=== PATIENT | female | born 1945 | race Caucasian/White ===

== ENCOUNTER 2019-09-01 17:28 | Inpatient (IN) | payer MEDICARE, MEDICAID ==
[~2019-09-01] VITALS: Ht 162.6 cm; Wt 95.5 kg
[~2019-09-01 17:28] MED LIST: HYDR25CA PO; ONDA4TAB12 PO
[2019-09-01 19:23] LABS: BASOPHILS % (AUTO) 0.2 % (0-1); EOSINOPHILS % (AUTO) 0.4 % (0-6); HEMATOCRIT 36.5 % (35.0-45.0); HEMOGLOBIN 12.3 g/dl (12.0-16.0); LYMPHOCYTES # (AUTO) 0.7 X10'3 (1.1-4.8); LYMPHOCYTES % (AUTO) 7.8 % (21-51); MEAN CORPUSCULAR HEMOGLOBIN 27.9 PG (27.0-31.0); MEAN CORPUSCULAR HGB CONC 33.8 g/dL (33.0-36.5); MEAN CORPUSCULAR VOLUME 82.5 FL (78-98); MEAN PLATELET VOLUME 9.5 FL (7.4-10.4); MONOCYTES # (AUTO) 0.6 X10'3 (0-0.9); MONOCYTES % (AUTO) 6.7 % (2-12); NEUTROPHILS # (AUTO) 7.5 X10'3 (1.8-7.7); NEUTROPHILS % (AUTO) 84.9 % (42-75); PLATELET COUNT 115 X10'3 (140-440); RED BLOOD COUNT 4.42 X10'6 (4.20-5.60); RED CELL DISTRIBUTION WIDTH 13.4 % (11.5-14.5); WHITE BLOOD COUNT 8.8 X10'3 (4.5-11.0)
[2019-09-01 19:24] LABS: ALANINE AMINOTRANSFERASE 20 U/L (12-78); ALBUMIN 3.7 G/DL (3.4-5.0); ALBUMIN/GLOBULIN RATIO 0.9 (1.1-1.5); ALKALINE PHOSPHATASE 104 IU/L (46-116); ANION GAP 9 (8-16); ASPARTATE AMINO TRANSFERASE 20 U/L (10-37); BILIRUBIN,TOTAL 0.9 MG/DL (0.1-1.0); BLOOD UREA NITROGEN 41 MG/DL (7-18); BUN/CREATININE RATIO 32.3 (6.6-38.0); CALCIUM 9.2 MG/DL (8.5-10.1); CHLORIDE 101 MMOL/L (99-107); CREATININE 1.27 MG/DL (0.40-0.90); GLUCOSE 110 MG/DL (70-104); POTASSIUM 3.9 MMOL/L (3.5-5.1); SODIUM 137 MMOL/L (135-145); TOTAL CARBON DIOXIDE 26.9 MMOL/L (24-32); TOTAL PROTEIN 7.9 G/DL (6.4-8.2); eGFR 41 ML/MIN
[2019-09-01 19:38] LABS: CLARITY,URINE CLOUDY (Clear); COLOR,URINE YELLOW (Yellow); GLUCOSE, URINE NEGATIVE (Neg); KETONES,URINE NEGATIVE (Neg); LEUKOCYTE ESTERASE ,URINE LARGE (Neg); NITRITES, URINE NEGATIVE (Neg); OCCULT BLOOD,URINE MODERATE (Neg); PROTEIN,URINE TRACE mg/dl (Neg); UROBILINOGEN,URINE 0.2 E.U/dL (0.2-1.0)
[2019-09-01] MEDS ORDERED: normal saline 1000ml 1,000 ML IV ONE ×2 (19:40→19:55)
[2019-09-01] MEDS ORDERED: piperacillin/tazo 3.375gm/50ml 50 ML IV ONE (19:40)
[2019-09-01] MEDS ORDERED: vancomycin/NS 1 GM ADD-VANTAGE 250 ML IV ONE (19:40)
[2019-09-01 19:46] LABS: UA COLLECTION TYPE CLN CATCH MIDSTREAM
[2019-09-01 19:47] LABS: WBC,URINE 50-100 /HPF (0-4)
[2019-09-01 19:48] LABS: BACTERIA,URINE 2+ /HPF (Neg); SQUAMOUS EPITHELIAL CELL,UR FEW /LPF (FEW)
[2019-09-01 19:49] LABS: TRANSITIONAL EPI CELLS,URINE FEW /HPF
[2019-09-01] MEDS ORDERED: TEMA30CA PO (19:52)
[2019-09-01] MEDS ORDERED: LISI40TA4 PO (19:52)
[2019-09-01] MEDS ORDERED: MORP60TA77 PO (19:52)
[2019-09-01] MEDS ORDERED: SIMV-45 PO (19:52)
[2019-09-01] MEDS ORDERED: HYDR12.55 PO (19:52)
[2019-09-01] MEDS ORDERED: ZOLP10TA5 PO (19:52)
[2019-09-01] MEDS ORDERED: magnesium Cl slow-release 64mg tablet PO PRN (19:55)
[2019-09-01] MEDS ORDERED: HYDROcodone/acetaminophen 5mg/325mg tablet PO PRN (19:55)
[2019-09-01] MEDS ORDERED: magnesium 2GM in 50ml NS 50 ML IV PRN (19:55)
[2019-09-01] MEDS ORDERED: morphine 2 MG/ML inj. syringe IV PRN ×2 (19:55)
[2019-09-01] MEDS ORDERED: acetaminophen 325mg tablet PO PRN (19:55)
[2019-09-01] MEDS ORDERED: magnesium 4gm in 100ml NS 100 ML IV PRN (19:55)
[2019-09-01] MEDS ORDERED: potassium Cl 20 mEq SR tablet PO PRN (19:55)
[2019-09-01] MEDS ORDERED: potassium CL 10mEq/100ml bag 100 ML IV PRN ×2 (19:55)
[2019-09-01] MEDS ORDERED: magnesium hydroxide 30ml (MOM) UD suspension PO PRN (19:55)
[2019-09-01] MEDS ORDERED: ondansetron/PF 4mg/2ml inj IV PRN (19:55)
[2019-09-01] MEDS ORDERED: mag hydrox/Alum hydrox/simeth 30ml oral suspension PO PRN (19:55)
[2019-09-01] MEDS: K and/or MAG REPLACEMENT MC SCH (20:00)
[2019-09-01] MEDS ORDERED: zolpidem 5mg tablet PO PRN (22:00)
[2019-09-01] MEDS ORDERED: temazepam 15mg capsule PO PRN ×2 (22:00→22:20)
--- NOTE | 2019-09-01 23:30 | NUR ---
PT AMB WITH STEADY GAIT TO RESTROOM, USES HER WHEELCHAIR A WALKER, PT C/O OF PAIN TO IV ON LEFT WRIST, STARTED ANOTHER IV ON RT HAND ON 1ST ATTEMPT
--- NOTE | 2019-09-02 00:12 | NUR ---
Patient in room ED 13 to be transferred to room 4011A. I have received report from JAKUB Friedman and had the opportunity to ask questions and assume patient care.
[2019-09-02 00:30] VITALS: BP 131/70
[2019-09-02 06:00] VITALS: BP 121/58
[2019-09-02 06:15] LABS: BASOPHILS % (AUTO) 0.2 % (0-1); EOSINOPHILS # (AUTO) 0.2 X10'3 (0-0.9); EOSINOPHILS % (AUTO) 2.8 % (0-6); HEMATOCRIT 31.5 % (35.0-45.0); HEMOGLOBIN 10.7 g/dl (12.0-16.0); LYMPHOCYTES # (AUTO) 1.2 X10'3 (1.1-4.8); LYMPHOCYTES % (AUTO) 18.6 % (21-51); MEAN CORPUSCULAR HEMOGLOBIN 28.1 PG (27.0-31.0); MEAN CORPUSCULAR VOLUME 82.6 FL (78-98); MEAN PLATELET VOLUME 9.3 FL (7.4-10.4); MONOCYTES # (AUTO) 0.7 X10'3 (0-0.9); MONOCYTES % (AUTO) 10.5 % (2-12); NEUTROPHILS # (AUTO) 4.5 X10'3 (1.8-7.7); NEUTROPHILS % (AUTO) 67.9 % (42-75); PLATELET COUNT 91 X10'3 (140-440); RED BLOOD COUNT 3.81 X10'6 (4.20-5.60); RED CELL DISTRIBUTION WIDTH 13.5 % (11.5-14.5); WHITE BLOOD COUNT 6.5 X10'3 (4.5-11.0)
[2019-09-02 06:31] LABS: ALBUMIN 2.8 G/DL (3.4-5.0); ANION GAP 8 (8-16); BLOOD UREA NITROGEN 37 MG/DL (7-18); BUN/CREATININE RATIO 34.3 (6.6-38.0); CALCIUM 8.5 MG/DL (8.5-10.1); CHLORIDE 106 MMOL/L (99-107); CREATININE 1.08 MG/DL (0.40-0.90); GLUCOSE 104 MG/DL (70-104); MAGNESIUM 1.6 MG/DL (1.5-2.4); SODIUM 139 MMOL/L (135-145); TOTAL CARBON DIOXIDE 24.7 MMOL/L (24-32); eGFR 50 ML/MIN
[2019-09-02 06:33] LABS: POTASSIUM 3.6 MMOL/L (3.5-5.1)
--- NOTE | 2019-09-02 06:35 | NUR ---
PAGER ID: [phone] MESSAGE: Patient Ingris Sandoval in room 1989J is in need of a diet order. Manav/Gracie Vickers [id number] Addendum: 09/02/19 at 0638 by Amy Bueno RN [facility] diet ordered per .
--- NOTE | 2019-09-02 06:35 | NUR ---
Problems reprioritized. Patient report given, questions answered & plan of care reviewed with JAKUB Lopez.
--- NOTE | 2019-09-02 06:42 | NUR ---
Patient in room ORTHO 4011. I have received report from JAKUB Vickers and had the opportunity to ask questions and assume patient care.
[2019-09-02] MEDS: K and/or MAG REPLACEMENT MC SCH ×2 (08:00→20:00)
[2019-09-02] MEDS: CefTRIAXone 2gm/D5W 50ml 50 ML IV SCH (08:19)
[2019-09-02] MEDS: enoxaparin 40mg/0.4ml syringe SQ SCH (08:20)
[2019-09-02] MEDS: lisinopril 20mg tablet PO SCH (08:20)
[2019-09-02] MEDS: morphine ER 30mg tablet PO SCH ×3 (08:20→21:01)
[2019-09-02] MEDS: HYDROchlorothiazide 12.5mg capsule PO SCH ×2 (08:21→08:30)
[2019-09-02] MEDS: lactobacillus rhamnosus 10,000 MMU CELLS/CAPSULE PO SCH ×2 (08:31→21:01)
[2019-09-02] MEDS: atorvastatin 20mg tablet PO SCH (08:31)
[2019-09-02 10:00] VITALS: BP 124/62
--- NOTE | 2019-09-02 13:17 | NUR ---
Spoke with pt Daughter Celsa who lives in [place] and is POA. She states that her mother has no vehicle, and no help at home. She has a poor diet of mostly carbs and sugar/ cookies, cakes etc. She is concerned and would like a Services consult.
[2019-09-02 18:00] VITALS: BP 103/50
[2019-09-02] MEDS: VANCOmycin 1250MG/NS 250ml Bag 250 ML IV SCH (18:13)
--- NOTE | 2019-09-02 18:29 | NUR ---
MS Rachel was pulled for am med pass, nurse scanned meds ands then pt refused to wake up to take. Nurse placed all pm meds in pt med specific. Pt did not wake up until ~1200 and next scheduled dose was due. RN returned am dose to KAREN
--- NOTE | 2019-09-02 18:33 | NUR ---
Problems reprioritized. Patient report given, questions answered & plan of care reviewed with JAKUB Waters.
--- NOTE | 2019-09-02 18:41 | NUR ---
Patient in room ORTHO 4011. I have received report from Jessica CALL and had the opportunity to ask questions and assume patient care. Patient is having dinner and shows no sign of distress.
[2019-09-02 21:00] VITALS: BP 128/55
[2019-09-02] MEDS: furosemide 20 MG/2 ML vial IV SCH (22:17)
[2019-09-03 06:06] VITALS: BP 148/76
--- NOTE | 2019-09-03 06:30 | NUR ---
Patient in room ORTHO 4011. I have received report from Evelin CALL and had the opportunity to ask questions and assume patient care.
--- NOTE | 2019-09-03 06:31 | NUR ---
Problems reprioritized. Patient report given, questions answered & plan of care reviewed with Alee CALL.
[2019-09-03 06:33] LABS: BASOPHILS % (AUTO) 0.2 % (0-1); EOSINOPHILS # (AUTO) 0.2 X10'3 (0-0.9); EOSINOPHILS % (AUTO) 3.6 % (0-6); HEMATOCRIT 34.2 % (35.0-45.0); HEMOGLOBIN 11.4 g/dl (12.0-16.0); LYMPHOCYTES # (AUTO) 1.4 X10'3 (1.1-4.8); LYMPHOCYTES % (AUTO) 22.7 % (21-51); MEAN CORPUSCULAR HEMOGLOBIN 27.7 PG (27.0-31.0); MEAN CORPUSCULAR HGB CONC 33.3 g/dL (33.0-36.5); MEAN CORPUSCULAR VOLUME 83.2 FL (78-98); MEAN PLATELET VOLUME 9.6 FL (7.4-10.4); MONOCYTES # (AUTO) 0.7 X10'3 (0-0.9); MONOCYTES % (AUTO) 11.6 % (2-12); NEUTROPHILS # (AUTO) 3.8 X10'3 (1.8-7.7); NEUTROPHILS % (AUTO) 61.9 % (42-75); PLATELET COUNT 128 X10'3 (140-440); RED BLOOD COUNT 4.11 X10'6 (4.20-5.60); RED CELL DISTRIBUTION WIDTH 13.7 % (11.5-14.5); WHITE BLOOD COUNT 6.2 X10'3 (4.5-11.0)
[2019-09-03 06:56] LABS: ALBUMIN 3.4 G/DL (3.4-5.0); ANION GAP 12 (8-16); BLOOD UREA NITROGEN 27 MG/DL (7-18); BUN/CREATININE RATIO 23.9 (6.6-38.0); CALCIUM 9.1 MG/DL (8.5-10.1); CHLORIDE 102 MMOL/L (99-107); CREATININE 1.13 MG/DL (0.40-0.90); GLUCOSE 96 MG/DL (70-104); MAGNESIUM 1.5 MG/DL (1.5-2.4); POTASSIUM 3.3 MMOL/L (3.5-5.1); SODIUM 140 MMOL/L (135-145); TOTAL CARBON DIOXIDE 26.1 MMOL/L (24-32); eGFR 47 ML/MIN
[2019-09-03] MEDS: potassium Cl 20 mEq SR tablet PO PRN ×2 (07:44→12:30)
[2019-09-03] MEDS: lactobacillus rhamnosus 10,000 MMU CELLS/CAPSULE PO SCH ×2 (07:44→20:09)
[2019-09-03] MEDS: morphine ER 30mg tablet PO SCH ×3 (07:44→20:08)
[2019-09-03] MEDS: lisinopril 20mg tablet PO SCH ×2 (07:44→08:00)
[2019-09-03] MEDS: atorvastatin 20mg tablet PO SCH (07:44)
[2019-09-03] MEDS: enoxaparin 40mg/0.4ml syringe SQ SCH ×3 (07:45→10:58)
[2019-09-03] MEDS: CefTRIAXone 2gm/D5W 50ml 50 ML IV SCH (07:45)
[2019-09-03] MEDS: K and/or MAG REPLACEMENT MC SCH ×2 (08:00→20:00)
--- NOTE | 2019-09-03 10:05 | NUR ---
I paged Dr. Chappell in regards to patient refusing meds again, and echo, and vitals. Patient stated that she needs to call her nurse practitioner friend to ask her about her treatment she is receiving here.
[2019-09-03] MEDS: furosemide 20 MG/2 ML vial IV SCH ×2 (10:57→20:14)
--- NOTE | 2019-09-03 11:56 | NUR ---
PATIENT REFUSED 1000 VITALS. PATIENT SUPPOSED RN FRIEND CALLING IN REGARDS TO PATIENT HEALTH CARE I TOLD HER I COULDN'T GIVE HER INFORMATION DO TO HIPPA VIOLATIONS. SHE STATED THE PATIENT SHOULDN'T HAVE BLOOD THINNERS BECAUSE OF HER HISTORY. I LISTENED TO THE FRIEND COMPLAIN ABOUT THE [facility]UR[facility] AND HER POOR NURSING CARE.
[2019-09-03] MEDS: VANCOmycin 1250MG/NS 250ml Bag 250 ML IV SCH (17:36)
--- NOTE | 2019-09-03 18:34 | NUR ---
Problems reprioritized. Patient report given, questions answered & plan of care reviewed with Diony CALL.
[2019-09-03] MEDS: zolpidem 5mg tablet PO PRN ×2 (20:09→22:26)
[2019-09-04 06:00] VITALS: BP 110/59
[2019-09-04 06:23] LABS: BASOPHILS % (AUTO) 0.3 % (0-1); EOSINOPHILS # (AUTO) 0.2 X10'3 (0-0.9); EOSINOPHILS % (AUTO) 4.5 % (0-6); HEMATOCRIT 31.2 % (35.0-45.0); HEMOGLOBIN 10.6 g/dl (12.0-16.0); LYMPHOCYTES # (AUTO) 1.3 X10'3 (1.1-4.8); LYMPHOCYTES % (AUTO) 27.2 % (21-51); MEAN CORPUSCULAR HEMOGLOBIN 27.8 PG (27.0-31.0); MEAN CORPUSCULAR HGB CONC 34.1 g/dL (33.0-36.5); MEAN CORPUSCULAR VOLUME 81.4 FL (78-98); MEAN PLATELET VOLUME 9.9 FL (7.4-10.4); MONOCYTES # (AUTO) 0.6 X10'3 (0-0.9); MONOCYTES % (AUTO) 13.2 % (2-12); NEUTROPHILS # (AUTO) 2.7 X10'3 (1.8-7.7); NEUTROPHILS % (AUTO) 54.8 % (42-75); PLATELET COUNT 127 X10'3 (140-440); RED BLOOD COUNT 3.83 X10'6 (4.20-5.60); RED CELL DISTRIBUTION WIDTH 13.4 % (11.5-14.5); WHITE BLOOD COUNT 4.9 X10'3 (4.5-11.0)
--- NOTE | 2019-09-04 06:33 | NUR ---
Patient in room ORTHO 4011. I have received report from JAKUB Vora and had the opportunity to ask questions and assume patient care.
[2019-09-04 07:21] LABS: ALBUMIN 2.8 G/DL (3.4-5.0); ANION GAP 9 (8-16); BLOOD UREA NITROGEN 25 MG/DL (7-18); BUN/CREATININE RATIO 23.6 (6.6-38.0); CALCIUM 8.8 MG/DL (8.5-10.1); CHLORIDE 105 MMOL/L (99-107); CREATININE 1.06 MG/DL (0.40-0.90); GLUCOSE 98 MG/DL (70-104); MAGNESIUM 1.6 MG/DL (1.5-2.4); POTASSIUM 3.3 MMOL/L (3.5-5.1); SODIUM 142 MMOL/L (135-145); TOTAL CARBON DIOXIDE 28.3 MMOL/L (24-32); eGFR 51 ML/MIN
[2019-09-04] MEDS: K and/or MAG REPLACEMENT MC SCH (07:27)
[2019-09-04] MEDS: potassium Cl 20 mEq SR tablet PO PRN (07:29)
[2019-09-04] MEDS: lactobacillus rhamnosus 10,000 MMU CELLS/CAPSULE PO SCH (07:29)
[2019-09-04] MEDS: atorvastatin 20mg tablet PO SCH (07:29)
[2019-09-04] MEDS: CefTRIAXone 2gm/D5W 50ml 50 ML IV SCH (07:30)
[2019-09-04] MEDS: morphine ER 30mg tablet PO SCH (07:30)
[2019-09-04] MEDS: furosemide 20 MG/2 ML vial IV SCH (07:30)
[2019-09-04] MEDS: lisinopril 20mg tablet PO SCH (07:30)
[2019-09-04] MEDS: enoxaparin 40mg/0.4ml syringe SQ SCH (07:32)
[2019-09-04 10:00] VITALS: BP 94/45
[2019-09-04] MEDS ORDERED: FURO-150 PO (11:14)
--- NOTE | 2019-09-04 13:43 | NUR ---
Discharged. PIV taken out. Vitals stable. Educated on meds and discharge/follow-up instructions. Meds called into [facility] on [address]. Stable per Dr Lord for DC. Picked up by friend. Patient took belongings and walked out. Medicare DC signed and ID band cut off.
[2019-09-05] MEDS ORDERED: VANCOMYCIN LEVEL IV ONE (17:30)
--- NOTE | 2019-09-08 08:29 | NUR ---
Case management DC follow up: LM/VM asking pt to rtn call for questions/concerns, status post DC
== END 2019-09-04 13:20 | disposition home or self-care (01) | DRG 602 ==
LOC: ER 17:29 → ED HOLD 19:52 → EDBEDREQ 23:52 → ORTHO 4S 09-02 00:15
PROVIDERS: ADMIT Hospitalist; ATTEND Family Medicine
DX: L03.116 Cellulitis of left lower limb (principal); I50.31 Acute diastolic (congestive) heart failure; I13.0 Hypertensive heart and chronic kidney disease with heart failure and stage 1 through stage 4 chronic kidney disease, or unspecified chronic kidney disease; N39.0 Urinary tract infection, site not specified; N17.9 Acute kidney failure, unspecified; L03.115 Cellulitis of right lower limb; N18.9 Chronic kidney disease, unspecified; I89.0 Lymphedema, not elsewhere classified; D64.9 Anemia, unspecified; E78.5 Hyperlipidemia, unspecified; E87.6 Hypokalemia; M19.90 Unspecified osteoarthritis, unspecified site; G47.00 Insomnia, unspecified; M79.7 Fibromyalgia; Z98.82 Breast implant status; Z88.8 Allergy status to other drugs, medicaments and biological substances; Z79.899 Other long term (current) drug therapy
CPT/HCPCS: 36415; 71045; 80048; 80053; 81001; 83605; 83735; 83880; 84145; 84443; 85025; 87040; 87081; 87088; 93005; 93306; 93970; 99285; G0378; J0696; J1650; J1940; J2270; J2405; J2543; J3370